=== PATIENT | female | born 1980 | race Caucasian/White ===

== ENCOUNTER 2021-06-30 00:25 | Emergency (ER) | payer OTHER ==
[2021-06-30] MEDS ORDERED: CEFUROXIME500 MG PO (04:06)
[2021-06-30] MEDS ORDERED: IBUPROFEN600 MG PO (04:06)
== END 2021-06-30 04:34 | disposition home or self-care (01) ==
LOC: ER1 00:25
DX: R07.89 Other chest pain (principal); N39.0 Urinary tract infection, site not specified; R68.83 Chills (without fever); N63.20 Unspecified lump in the left breast, unspecified quadrant; F17.200 Nicotine dependence, unspecified, uncomplicated; Z85.3 Personal history of malignant neoplasm of breast; Z88.5 Allergy status to narcotic agent
CPT/HCPCS: 71046; 81001; 84703; 87086; 99283

== ENCOUNTER 2021-12-28 16:46 | Emergency (ER) | payer OTHER ==
[~2021-12-28 16:46] MED LIST: CEFUROXIME500 MG PO; IBUPROFEN600 MG PO
[2021-12-28 17:42] LABS: HEMOGLOBIN 13.5 gm/dl (12.3-15.3); RED BLOOD COUNT 4.48 M/UL (4.00-5.10)
[2021-12-28 18:08] LABS: BUN/CREATININE RATIO 8 (0-10)
[2021-12-28] MEDS ORDERED: METRONIDAZOLE500 MG PO (18:59)
== END 2021-12-28 19:15 | disposition home or self-care (01) ==
LOC: ER1 16:46
PROVIDERS: Nurse Practitioner
DX: A59.01 Trichomonal vulvovaginitis (principal); R10.31 Right lower quadrant pain; R10.813 Right lower quadrant abdominal tenderness; F17.210 Nicotine dependence, cigarettes, uncomplicated; Z88.5 Allergy status to narcotic agent
CPT/HCPCS: 80053; 81001; 84703; 85025; 86850; 86900; 86901; 87086; 96374; 96375; 99284; J2270; J2405; Q9967